=== PATIENT | female | born 1955 | race Caucasian/White ===

== ENCOUNTER 2016-07-23 18:55 | Emergency (ER) | payer OTHER ==
[2016-07-23 19:14] VITALS: BP 131/85; PULSE 76; RESP 18; TEMP 97.9; O2SAT 100
--- NOTE | 2016-07-23 19:36 | EDPHY ---
[id number] female left shoulder injury that occurred this evening. Slip and fall on the ice and landing on left shoulder. Has pain and bruising to the left shoulder. Increased pain with range of motion. No previous injury. Patient is right handed. Denies head injury loss of consciousness, neck pain. ROS Constitutional. no fever/chills, no weakness Eyes. no problems with vision ENT. no sore throat, no nasal drainage Cardiovascular. no chest pain Respiratory. no shortness of breath, no cough Abdominal. no abdominal pain, no nausea/vomiting, no diarrhea . no problems urinating MS. Left shoulder pain Skin. no rash Lymph. no swollen glands Neuro. no headache, no dizziness, no difficulty walking or with speech Past Medical/Surgical History: Tonsillectomy Social History: , nonsmoker, no alcohol Smoking Status: Never smoked Physical Exam: General Appearance: Alert well-developed female moderate distress vital signs are stable Eyes: Pupils equal and round no pallor or injection. ENT, Mouth: Mucous membranes are moist. Respiratory: There are no retractions, lungs are clear to auscultation. Cardiovascular: Regular rate and rhythm. Gastrointestinal: Abdomen is soft and nontender, no masses, bowel sounds normal. Neurological: Awake and alert, sensory and motor exams grossly normal. Skin: Warm and dry, no rashes. Musculoskeletal: Neck is supple nontender. Bruising to the anterior aspect of the left shoulder. Swelling and pain to palpation. Extremities symmetrical, full range of motion. Psychiatric: Patient is oriented X 3, there is no agitation. Constitutional: Initial Vital Signs Temperature (C) 36.6 C 07/23/16 19:11 Heart Rate 76 07/23/16 19:11 Respiratory Rate 18 07/23/16 19:11 Blood Pressure 131/85 H 07/23/16 19:11 O2 Sat (%) 100 07/23/16 19:11 O2 Delivery Mode Room Air Allergies/Adverse Reactions: Sulfa (Sulfonamide Antibiotics) Allergy (Verified 07/23/16 19:10) Home Medications: Medication Instructions Recorded oxyCODONE/APAP 5/325 [Percocet 1 tab PO Q4-6PRN PRN #14 tab 07/23/16 5/325] Medical Decision Making - Diagnostics Imaging: X-ray left shoulder shows a comminuted and displaced humeral neck fracture Procedures: Percocet and Zofran for pain ED Course/Re-evaluation: I consulted and discussed case with Dr. Ware, orthopedist who agrees with coaptation splint, sling and will see the patient in the office on Wednesday or Wednesday I have discussed imaging study results, treatment plan including criteria for return and importance of follow-up and further evaluation with the patient. She expresses understanding and agreement. She feels comfortable going home Patient is placed in a coaptation splint. Post splint application shows good anatomic position and distal motor vascular sensitivity to be intact. Sling after the splint is in place Differential Diagnosis: I considered fracture, dislocation, contusion, sprain - Data Points Medications Given: Discontinued Medications Ondansetron HCl (Zofran Odt) 4 mg PO EDNOW ONE Stop: 07/23/16 19:51 Last Admin: 07/23/16 20:14 Dose: 4 mg Ondansetron HCl (Zofran Odt 4 Mg Prepack#2) 1 btl TAKEHOME EDNOW ONE Stop: 07/23/16 20:17 Last Admin: 07/23/16 20:23 Dose: 1 btl Oxycodone/Acetaminophen (Percocet 5/325) 1 tab PO EDNOW ONE Stop: 07/23/16 19:51 Last Admin: 07/23/16 20:18 Dose: 1 tab Oxycodone/Acetaminophen (Percocet 5/325mg Prepack#4) 1 btl TAKEHOME EDNOW ONE Stop: 07/23/16 19:51 Last Admin: 07/23/16 20:19 Dose: 1 btl Departure - Departure Disposition: Home, Routine, Self-Care Clinical Impression: Fracture, humerus, anatomical neck Qualifiers: Encounter type: initial encounter Fracture type: closed Laterality: left Qualifier Code: (S42.292A) Other displaced fracture of upper end of left humerus , initial encounter for closed fracture Condition: Good Instructions: Proximal Humerus Fracture (ED) Additional Instructions: Splint and sling until you see Dr. Ware. Percocet or Tylenol as needed for discomfort. Ice to shoulder next 48 hours. Call tomorrow for follow-up appointment on Wednesday or Wednesday. Return for uncontrolled pain, fever, vomiting Referrals: Ciara Montoya MD [Primary Care Provider] - As per Instructions Sandra Ware MD [Medical Doctor] - 2-3 days without fail Prescriptions: oxyCODONE/APAP 5/325 [Percocet 5/325] 1 tab PO Q4-6PRN PRN #14 tab PRN Reason: Pain, Moderate
[2016-07-23] MEDS ORDERED: OXYCODONE/APAP 5/325MG PREPACK#4 BTL TAKEHOME ONE (19:50)
[2016-07-23] MEDS ORDERED: OXYCODONE/APAP 5/325 TAB PO ONE (19:50)
[2016-07-23] MEDS ORDERED: ONDANSETRON DISINTEGRATING 4 MG TAB PO ONE (19:50)
--- NOTE | 2016-07-23 20:14 | DX ---
Left Shoulder, Two Views History: Pain and deformity after a fall. Comparison: None available. Findings: There is a comminuted fracture of the surgical neck of the humerus, with approximately one shaft width anterior and medial displacement with mild posterior angulation. Alignment of the gleno humeral joint appears normal. The acromioclavicular and coracoclavicular relationships are normal. Calcified right hilar lymph nodes are noted. Impression: Comminuted displaced fracture of the surgical neck of the humerus.
[2016-07-23] MEDS ORDERED: ONDANSETRON 4MG PREPACK#2 BTL TAKEHOME ONE (20:16)
== END 2016-07-23 21:00 | disposition home or self-care (01) ==
DX: S42.292A Other displaced fracture of upper end of left humerus, initial encounter for closed fracture (principal); W00.0XXA Fall on same level due to ice and snow, initial encounter
CPT/HCPCS: A4565

== ENCOUNTER 2016-08-06 11:28 | Observation (INO) | payer OTHER ==
[~2016-08-06 11:28] MED LIST: BACITRACIN 50,000 UNITS/10 ML SYR IRR ONE; BUPIVACAINE 0.5% 30 ML SDV ONE; POLYMYXIN B SULFATE 500,000 UNIT/10 ML SYR IRR ONE
[2016-08-06] MEDS ORDERED: LIDOCAINE 1% 5 ML SDV ONE (12:08)
[2016-08-06] MEDS ORDERED: CEFAZOLIN 1 GM/DEXTROSE/50 ML BAG IV ONE (12:11)
[2016-08-06] MEDS ORDERED: LR 1,000 ML IV ONE (12:14)
[2016-08-06] MEDS ORDERED: LIDOCAINE 1% 5 ML SDV ID PRN (12:14)
[2016-08-06] MEDS ORDERED: THROMBIN (RECOMBINANT) 5,000 UNIT VIAL TP ONE (12:22)
[2016-08-06] MEDS ORDERED: CALCIUM CHLORIDE 1 GM/10 ML INJ ONE (12:23)
[2016-08-06] MEDS ORDERED: fentaNYL 100 MCG/2 ML INJ ONE (13:43)
[2016-08-06] MEDS ORDERED: PROPOFOL 200 MG/20 ML VIAL ONE (13:43)
[2016-08-06] MEDS ORDERED: ROPIVACAINE HCL 150 MG/30 ML INJ ONE (13:44)
[2016-08-06] MEDS ORDERED: DEXAMETHASONE 4 MG/ML VIAL ONE ×2 (13:44→14:15)
[2016-08-06] MEDS ORDERED: LIDOCAINE 2% JELLY 5 ML TUBE ONE (13:59)
[2016-08-06] MEDS ORDERED: epHEDrine SULFATE 10 MG/ML SYR ONE ×2 (14:02→14:22)
[2016-08-06] MEDS ORDERED: ONDANSETRON 4 MG/2 ML VIAL ONE (14:15)
[2016-08-06] MEDS ORDERED: TEMAZEPAM 15 MG CAP PO PRN (16:07)
[2016-08-06] MEDS ORDERED: ACETAMINOPHEN 325 MG TAB PO PRN (16:07)
[2016-08-06] MEDS ORDERED: ONDANSETRON 4 MG/2 ML VIAL IVP PRN (16:07)
--- NOTE | 2016-08-06 16:07 | POSTOPPROG ---
Post Op Note Date of Operation: 08/06/16 Surgeon: Sandra Ware Heating Equipment Repairer: kasandra Anesthesiologist: [email or web address] Anesthesia: LMA Pre-op Diagnosis: l prox hum fx Procedure: l prox hum orif with fluoro Inf/Abcess present in the surg proc area at time of surgery?: No Depth: Deep Incisional (Fascial) EBL: 50-100
--- NOTE | 2016-08-06 17:43 | GOP ---
[f rep st] OPERATIVE REPORT DATE OF OPERATION: 08/06/2016 SURGEON: Sandra Ware MD [facility] FORMER: PAKO SegundoA, LSA, whose presence was medically necessary. ANESTHESIA: LMA, plus scalene nerve block per surgeon's request. PREOPERATIVE DIAGNOSIS: Left proximal humerus fracture. POSTOPERATIVE DIAGNOSIS: Left proximal humerus fracture. PROCEDURE PERFORMED: Left proximal humerus open reduction internal fixation with fluoroscopy. FINDINGS: INDICATIONS: This is a 61-year-old female who had fallen last week, directly onto her left shoulder . She was diagnosed with a left proximal humerus fracture. Secondary to its comminution, it was de cided that surgery would be her best option. DESCRIPTION OF PROCEDURE: The patient was brought to the operating room once the left side had been identified as the correct side by the patient, nurse, and physician. Once in the operating room, s he was given a scalene block on the left side. She was then placed under general anesthesia using a n LMA. Once asleep, she was placed in a beach chair position with the left upper extremity sterilel y prepped and draped in the usual fashion using GSI solution. Once prepped and draped, a linear inc ision was made just lateral to the area around the biceps groove, with sharp dissection carried down through the skin, subcutaneous layers, with bleeding controlled using electrocautery. Blunt dissec tion was carried down through the deltopectoral interval with the deltoid retractor used to pull the deltoid posteriorly, exposing the fracture site. A great deal of periosteal stripping had been don e by the fracture itself, and there were found to be multiple bony pieces within the area. The bony pieces were removed since they had no soft tissue attached to them, kept on the back table and kept moist. The rest of the fracture was able to be thoroughly irrigated. There was some minor amount of fibrous tissue within the area, however, she was noted to have an abundant loss of cancellous bon e within the humeral head and the proximal humerus. A provisional fixation was done with K-wires in order to gain some reduction. Fluoroscopy was then used to ensure adequate reduction. Once ensure d, bone chips had been mixed with blood and placed within the proximal humerus, filling in the cavit gina defect of the humeral head and the proximal humerus. Some of the cortical pieces that had been saved were then placed on top of the cancellous bone grafts, and then a 3-hole proximal humeral plat e from [employer] was put into place and noted to fit well. A single screw was placed in the proximal most of the distal shaft holes in order to secure the plate onto the bone. A cancellous screw was p laced within the humeral head to gain lag affect. Then, 2 locking screws were placed in the proxima l most portion of the plate. Fluoroscopy was again used to ensure adequate placement of the screws and that the screws were not too long. Once this was ensured, multiple proximal locking screws were put into place, adding up to 8 holes proximally. The 2 remaining distal locking slots in the plate were filled for a total of 11 screws into the plate. Once completed, fluoroscopy was again used to ensure proper placement of the screws and they were not too long. Once this was ensured, the wound was thoroughly irrigated with an antibiotic solution. Plasma gel was placed within the proximal hu meral head. The wound was then closed in layers using 0 Vicryl suture for the deltopectoral interva l, 0 Vicryl and 2-0 Vicryl suture for the subcutaneous layers, and a 3-0 Prolene suture in a running subcuticular stitch for the skin. 15 cc of Marcaine was infused around the skin. The wound was dr essed with Steri-Strips, Xeroform, 4 x 4's, and Tegaderm. She was completely undraped in the operat ing room, had the left upper extremity placed in a sling. She was woken up, extubated, transferred onto a stretcher, and sent to recovery room in good condition. /[id number]/MODL
[2016-08-06] MEDS: traMADol 50 MG TAB PO SCH (19:01)
[2016-08-06] MEDS: ceFAZolin 2 GM in D5W 100 ML IV SCH (20:46)
[2016-08-06] MEDS ORDERED: ceFAZolin 2 GM/DEXTROSE 100 ML IV SCH (22:00)
[2016-08-07] MEDS: traMADol 50 MG TAB PO SCH ×4 (01:47→17:22)
[2016-08-07] MEDS: ceFAZolin 2 GM in D5W 100 ML IV SCH ×2 (05:37→06:53)
[2016-08-07 07:39] VITALS: RESP 16
[2016-08-07] MEDS: HYDROCODONE/APAP 5/325 TAB PO PRN ×2 (07:46→12:45)
[2016-08-07 12:07] VITALS: BP 125/80; PULSE 68; TEMP 98.4; O2SAT 98
[2016-08-07] MEDS ORDERED: HYDROmorphONE/DILAUDID 1 MG/ML SYR IVP PRN (12:55)
--- NOTE | 2016-08-07 15:14 | PDIAF ---
- Diagnosis Code Status: Full Code - Medication Management Discharge Medications: Medications to Continue on Transfer Hydrocodone/APAP 5/325 [[place] 5/325 (*)] 1 - 2 tab PO Q3HRS PRN #0 tab 08/07/16 [Last Taken Unknown] traMADol [Ultram 50 mg (*)] 50 mg PO Q6HRS #0 tab 08/07/16 [Last Taken Unknown] Discharge Medications: Refer to the Discharge Home Medication list for PRN reason. PICC Care - Routine: N/A - Orders Diet Recommendation: no restrictions on diet Diet Texture: Regular Texture Diet Andersen: Not applicable Wound Care Instructions: keep dry Sutures/Sidney Site: will remove in office - Follow Up Care Current Providers and Referrals: Ciara Montoya MD [Primary Care Provider] -
== END 2016-08-07 17:43 | disposition home or self-care (01) ==
LOC: FSGY 11:28 → F3N 16:07
PROVIDERS: ADMIT Orthopaedic Surgery; ATTEND Orthopaedic Surgery
PROC: BP1BZZZ Fluoroscopy of Left Humerus (ICD-10-PCS; principal; 2016-08-06 13:15)
PROC: 0PSF04Z Reposition Right Humeral Shaft with Internal Fixation Device, Open Approach (ICD-10-PCS; principal; 2016-08-06 13:15)
DX: S42.202A Unspecified fracture of upper end of left humerus, initial encounter for closed fracture (principal); W19.XXXA Unspecified fall, initial encounter
CPT/HCPCS: 23615; C1769; G0378; C1713; C1762; J0690; J1100; J1170; J2405; J2704; J2795; J3010